=== PATIENT | female | born 1995 | race African-American/Black ===

== ENCOUNTER 2019-06-19 19:21 | Inpatient (IN) | payer MEDICAID ==
[~2019-06-19] VITALS: Ht 177.8 cm; Wt 54.0 kg
[2019-06-19 19:21] VITALS: BP 125/73
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
--- NOTE | 2019-06-19 19:21 | NUR ---
PT AMBULATED FROM [place] TO BED 5. SITTER AT BEDSIDE. ROOM PREPARED FOR 5150 HOLD PRIOR TO PT ARRIVAL.
--- NOTE | 2019-06-19 19:22 | NUR ---
PT DENIES SUICIDAL IDEATION AT THIS TIME. BUT ADDS THAT SHE HAS BEEN PLACED ON A 5150 HOLD BEFORE.
--- NOTE | 2019-06-19 19:30 | NUR ---
PT IN GOWN, PROVIDED URINE. COOPERATIVE AT THIS TIME AND SITTING QUITELY. VSS CONTINUE TO MONITOR.
--- NOTE | 2019-06-19 20:00 | NUR ---
PT EATING BEDSIDE, COOPERATIVE AND QUIET AT THIS TIME.
--- NOTE | 2019-06-19 20:09 | NUR ---
PER TELEPSYCH REQUEST INITIATED
--- NOTE | 2019-06-19 20:09 | NUR ---
LAB AT BEDSIDE
--- NOTE | 2019-06-19 20:23 | NUR ---
PT EXPOSED HER VAGINAL AREA. AREA HAS OPEN SORES, RED AND INFLAMMED. DR HDEZ NOTIFIED.
[2019-06-19 20:28] LABS: BASOPHILS % (AUTO) 0.5 % (0.0-2.0); EOSINOPHILS # (AUTO) 0.1 K/uL (0-0.4); EOSINOPHILS % (AUTO) 1.7 % (0.0-4.0); HEMATOCRIT 33.7 % (36-48); HEMOGLOBIN 11.2 g/dL (12.0-16.0); LYMPHOCYTES # (AUTO) 1.5 K/uL (2.5-16.5); MEAN CORPUSCULAR HEMOGLOBIN 26 pg (27-31); MEAN CORPUSCULAR HGB CONC 33 g/dL (33-37); MEAN CORPUSCULAR VOLUME 78.8 fL (80-94); MONOCYTES # (AUTO) 0.9 K/uL (0.8-1.0); MONOCYTES % (AUTO) 11.6 % (1.7-9.3); NEUTROPHILS # (AUTO) 5.2 K/uL (1.8-7.7); NEUTROPHILS % (AUTO) 67.2 % (42.2-75.2); PLATELET COUNT (AUTO) 332 K/uL (140-450); RED BLOOD CELL COUNT(AUTO) 4.28 MIL/uL (4.20-5.40); RED CELL DISTRIBUTION WIDTH 17.2 % (11.6-13.7); WHITE BLOOD COUNT (AUTO) 7.7 K/uL (4.8-10.8)
[2019-06-19 20:28] LABS: APPEARANCE,URINE CLEAR (CLEAR); BILIRUBIN,URINE 1+ (NEGATIVE); BLOOD, URINE TRACE-I (NEGATIVE); COLOR,URINE YELLOW (YELLOW); LEUKOCYTE ESTERASE ,URINE 1+ (NEGATIVE); NITRITE, URINE NEGATIVE (NEGATIVE); UGLUCOSE NEGATIVE (NEGATIVE)
--- NOTE | 2019-06-19 20:29 | NUR ---
PT ALERT, AWAKE AND ORIENTED. AWARE OF CURRENT SURROUNDINGS. CAN STATE THE YEAR, HER NAME, DATE OF . MEMORY IS INTACT.
[2019-06-19 20:34] LABS: BARBITURATE, URINE NEG. ng/ml (NEG <=200); BENZODIAZEPINE, URINE NEG. ng/mL (NEG <=200); CANNABINOID, URINE NEG. ng/mL (NEG <=50); COCAINE, URINE NEG. ng/mL (NEG <=300); OPIATE, URINE NEG. ng/mL (NEG <=2000); PHENCYCLIDINE SCREEN,URINE NEG. ng/mL (NEG <=25)
[2019-06-19 20:40] LABS: URINE AMORPHOUS URATE 1+ /HPF (None Seen)
[2019-06-19 20:41] LABS: ANION GAP 13.7 (8-16); CARBON DIOXIDE 25.6 mmol/L (21-32); CHLORIDE 104 mmol/L (98-107); CREATININE 1.2 mg/dL (0.6-1.3); GFR ARICAN-AMERICAN 72 mL/min (>90); GLUCOSE 87 mg/dL (74-106); POTASSIUM 3.3 mmol/L (3.5-5.1); SODIUM SERUM 140 mmol/L (136-145); UREA NITROGEN, BLOOD 9 mg/dL (7-18)
[2019-06-19 20:47] LABS: ALBUMIN 2.9 g/dL (3.4-5.0); ASPARTATE AMINOTRANSFERASE 53 U/L (15-37); TOTAL BILIRUBIN 0.4 mg/dL (0.0-1.0)
[2019-06-19 20:50] LABS: ACETAMINOPHEN < 0.5 ug/ml (10-30); SALICYLATE < 2.8 mg/dL (2.8-20.0)
--- NOTE | 2019-06-19 20:51 | NUR ---
PATIENT STATES SHE DOES NOT TAKE ANY MEDICATIONS
[2019-06-19] MEDS ORDERED: CIPROFLOXACIN 250 MG TAB PO ONE (21:05)
--- NOTE | 2019-06-19 21:15 | NUR ---
REPORT GIVEN TO MAXIMILIANO RAMIREZ
--- NOTE | 2019-06-19 21:18 | NUR ---
RECEIVED REPORT FROM SOFIA RAMIREZ
--- NOTE | 2019-06-19 21:31 | NUR ---
GAVE REPORT TO TELE KATJA KEEN. PT ON PHONE WITH KATYA DEVINE MD
--- NOTE | 2019-06-19 21:45 | NUR ---
DR SHEPPARD RECOMMONDS RELEASE OF 5150 AND FOR PT TO SLEEP FOR THE NIGHT AND TO BE D/C IN AM. WILL FAX OVER REPORT. DR HDEZ MADE AWARE.
[2019-06-19] MEDS ORDERED: ACYCLOVIR 500 MG in NACL 0.9% 100 ML IV ONE (22:05)
[2019-06-19] MEDS ORDERED: NACL 0.9% 1,000 ML IV ONE (22:05)
[2019-06-19] MEDS ORDERED: KETOROLAC 30 MG/ML VIAL IVP ONE (22:15)
[2019-06-19] MEDS ORDERED: ACYCLOVIR 500 MG VIAL IV ONE (22:23)
[2019-06-19] MEDS: NACL 0.9% 1,000 ML IV SCH (22:26)
[2019-06-19] MEDS ORDERED: DOCUSATE SODIUM 100 MG GELCAP PO PRN (22:30)
[2019-06-19] MEDS ORDERED: ACETAMINOPHEN 325 MG TAB PO PRN (22:30)
[2019-06-19] MEDS ORDERED: HYDROcodone/APAP 7.5/325 MG 1 TAB PO PRN (22:30)
[2019-06-19] MEDS ORDERED: ONDANSETRON 4 MG/2 ML VIAL IM/IVP PRN (22:30)
--- NOTE | 2019-06-19 22:33 | NUR ---
PT REFUSED XRAY. WAS NOTIFIED
[2019-06-19] MEDS ORDERED: ACYCLOVIR IV PER PHARMACY MC PRN (22:50)
--- NOTE | 2019-06-19 22:52 | NUR ---
RECIEVED PT FROM ER/GURNEY , SLEEPY /DROWSY , BUT OBEY SIMPLE COMMAND , TRANSFER TO BED BY HERSELF WITH SAFETY MEASURES INITIATES BY NURSES , IV SITE INTACT AND PATENT , WITH VESICLES ON GENITALS AND OPEN WOUND ON DIFFERENT STAGES ON GENITAL BUT PT REFUSE FOR PHOTO . PLAN OF CARE DISCUSSED AND POOR UNRSTANDING BUT POOR UNDERSTANDING BEC. OF MENTAL STATUS . ON SAFETY / FALL PRECAUTION PROTOCOL -CALL LIGHT WITHIN REACH. WILL CONT. TO MONITOR.
[2019-06-19 22:54] VITALS: BP 110/72
--- NOTE | 2019-06-19 23:06 | NUR ---
Pt report given to MANDY RAMIREZ. Transfer of care at this time. PT TO MED SURG ROOM 115.
[2019-06-19] MEDS ORDERED: KETOROLAC 30 MG/ML VIAL IM PRN (23:15)
[2019-06-19 23:29] LABS: CHOL/HDL RATIO 3.3 (1-4.5); MAGNESIUM 1.4 mg/dL (1.8-2.4); PHOSPHORUS 3.5 mg/dL (2.5-4.9); THYROID STIMULATING HORMONE 0.83 uIU/mL (0.34-3.74)
[2019-06-19] MEDS ORDERED: QUEtiapine FUMARATE 25 MG TAB PO SCH (23:30)
[2019-06-19] MEDS ORDERED: POTASSIUM CHLORIDE 10 MEQ TABER PO SCH (23:30)
--- NOTE | 2019-06-19 23:55 | NUR ---
PATIENT REFUSED EKG. DR MENDOZA IS AWARE
[2019-06-20] MEDS ORDERED: MAG SULF 2000 MG/WATER PREMIX 50 ML IV SCH
--- NOTE | 2019-06-20 02:00 | NUR ---
SLEEPING - NO DISTRESS NOTED AT THOIS TIME.
[2019-06-20 04:00] VITALS: BP 110/60
--- NOTE | 2019-06-20 04:00 | NUR ---
MADE ROUNDS , NO DISTRESS NOTED ON THIS TIME , CALL LIGHT WITHIN REACH.
[2019-06-20] MEDS ORDERED: ACYCLOVIR 500 MG VIAL IV ONE (06:28)
[2019-06-20] MEDS: ACYCLOVIR 500 MG in NACL 0.9% 100 ML IV SCH ×3 (06:28→23:04)
--- NOTE | 2019-06-20 07:25 | NUR ---
RECEIVED REPORT FROM SASH INSTALLER NURSE JOHN FOR CONTINUITY OF CARE. PT IN STABLE CONDITION. RESPIRATIONS EVEN AND UNLABORED, ROOM AIR. IV INTACT AND PATENT. SAFETY MEASURES IN PLACE. BED IN LOW POSITION. CALL LIGHT AT BEDSIDE. WILL CONTINUE TO MONITOR.
[2019-06-20 07:42] LABS: MAGNESIUM 1.7 mg/dL (1.8-2.4); PHOSPHORUS 4.1 mg/dL (2.5-4.9)
[2019-06-20 07:53] LABS: CARBON DIOXIDE 27.7 mmol/L (21-32); CREATININE 1.1 mg/dL (0.6-1.3); POTASSIUM 3.7 mmol/L (3.5-5.1)
[2019-06-20 08:00] VITALS: BP 113/53
--- NOTE | 2019-06-20 08:00 | NUR ---
PT REFUSED WOUND CARE ASSESSMENT AT THIS TIME.
[2019-06-20 08:16] LABS: BASOPHILS % (AUTO) 0.5 % (0.0-2.0); EOSINOPHILS # (AUTO) 0.2 K/uL (0-0.4); EOSINOPHILS % (AUTO) 3.3 % (0.0-4.0); HEMATOCRIT 37.1 % (36-48); HEMOGLOBIN 11.9 g/dL (12.0-16.0); LYMPHOCYTES # (AUTO) 1.2 K/uL (2.5-16.5); LYMPHOCYTES % (AUTO) 20.3 % (20.5-51.1); MEAN CORPUSCULAR HEMOGLOBIN 26 pg (27-31); MEAN CORPUSCULAR HGB CONC 32 g/dL (33-37); MEAN CORPUSCULAR VOLUME 80.9 fL (80-94); MONOCYTES # (AUTO) 0.7 K/uL (0.8-1.0); MONOCYTES % (AUTO) 11.1 % (1.7-9.3); NEUTROPHILS # (AUTO) 3.9 K/uL (1.8-7.7); NEUTROPHILS % (AUTO) 64.8 % (42.2-75.2); PLATELET COUNT (AUTO) 354 K/uL (140-450); RED BLOOD CELL COUNT(AUTO) 4.58 MIL/uL (4.20-5.40); WHITE BLOOD COUNT (AUTO) 6.1 K/uL (4.8-10.8)
--- NOTE | 2019-06-20 08:30 | NUR ---
PATIENT HAS BEEN SCREENED AND CATEGORIZED HIGH NUTRITION RISK. PATIENT WILL BE SEEN WITHIN 1-2 DAYS OF ADMISSION. 06/20/19-06/21/[address]
[2019-06-20] MEDS: LACTOBACILLUS RHAMNOSUS GG 1 EACH CAP PO SCH (08:55)
--- NOTE | 2019-06-20 10:33 | NUR ---
STANDBY ASSISTED PT TO RESTROOM. PT TOLERATED WELL, STEADY GAIT.
--- NOTE | 2019-06-20 12:01 | NUR ---
GAVE SANDWICH PER PT REQUEST. RESPIRATIONS EVEN AND UNLABORED. BED IN LOW POSITION. CALL LIGHT AT BEDSIDE. PT IN STABLE CONDITION.
--- NOTE | 2019-06-20 12:44 | NUR ---
MADE A FOLLOW UP CALL TO DR. GUNN REGARDING THE PSYCH CONSULT. DR. GUNN STATED HE WILL BE HERE VERY SOON. JAROCHO RAMIREZ ASSIGNED MADE AWARE.
[2019-06-20] MEDS: MORPHINE SULFATE 2 MG/ML SYR IVP PRN (14:21)
--- NOTE | 2019-06-20 14:30 | NUR ---
GAVE PRN MORPHINE FOR PAIN 06/20. PT TOLERATED WELL. WILL CONTINUE TO MONITOR.
[2019-06-20] MEDS: NACL 0.9% 1,000 ML IV SCH ×2 (15:06→23:04)
--- NOTE | 2019-06-20 15:18 | NUR ---
06/20/19 RD INITIAL ASSESSMENT COMPLETED PLEASE REFER TO NUTRITION ASSESSMENT UNDER CARE ACTIVITY FOR ESTIMATED NUTRITIONAL NEEDS. 1. CONTINUE REGULAR DIET TOLERATED 2. RECOMMEND MULTIVITAMIN ONCE DAILY 3. DOUBLE ENTREE WILL BE PROVIDED TO PATIENT 4. HEALTH SHAKES BID WILL BE ADDED TO EACH MEAL 5. IF PO INTAKE FALLS BELOW 75% RECOMMEND ENSURE BID 6. RD TO FOLLOW-UP 3-5 DAYS, MODERATE RISK KUSUM TOVAR RD
--- NOTE | 2019-06-20 15:20 | NUR ---
PT VOMITED ON FLOOR AT THIS TIME. PT IN STABLE CONDITION.
--- NOTE | 2019-06-20 17:22 | NUR ---
GAVE ORANGE JUICE PER PT REQUEST. RESPIRATIONS EVEN AND UNLABORED. BED IN LOW POSITION. CALL LIGHT AT BEDSIDE. PT IN STABLE CONDITION.
[2019-06-20] MEDS: FERROUS SULFATE 325 MG TABEC PO SCH (18:15)
[2019-06-20] MEDS: QUEtiapine FUMARATE 25 MG TAB PO SCH (18:16)
--- NOTE | 2019-06-20 19:36 | NUR ---
GAVE REPORT TO GEOLOGY ASSOCIATE NURSE YEIMI FOR CONTINUITY OF CARE. PT IN STABLE CONDITION.
--- NOTE | 2019-06-20 19:37 | NUR ---
RECEIVED REPORT FROM DAY RN FOR CONTINUITY OF CARE. PT IN STABLE CONDITION. RESPIRATIONS EVEN AND UNLABORED, ROOM AIR. IV INTACT AND PATENT. SAFETY MEASURES IN PLACE. BED IN LOW POSITION. CALL LIGHT AT BEDSIDE. WILL CONTINUE TO MONITOR.
--- NOTE | 2019-06-20 21:30 | NUR ---
DR ROSA IN TO SEE PT WITH DR MENDOZA. DOCTORS ASSESSED THE LESIONS. WILL AWAIT NEW ORDERS. NO S/S OF DISTRESS. WILL CONTINUE TO MONITOR.
[2019-06-20 22:04] VITALS: BP 112/79
--- NOTE | 2019-06-20 23:10 | NUR ---
PT IS SLEEPING COMFORTABLY IN BED. IV ANTIBIOTIC NOW INFUSING PER ORDERS. VITAL SIGNS ARE WITHIN NORMAL LIMITS. DENIES ANY PAIN. NO S/S OF DISTRESS. CALL LIGHT IS WITHIN REACH. WILL CONTINUE TO MONITOR.
--- NOTE | 2019-06-21 01:00 | NUR ---
PT IS SLEEPING COMFORTABLY IN BED. CHEST RISE AND FALL. SAFETY MEASURES ARE IN PLACE. CALL LIGHT IS WITHIN REACH. WILL CONTINUE TO MONITOR.
--- NOTE | 2019-06-21 02:36 | NUR ---
PT IS SLEEPING COMFORTABLY IN BED. CHEST RISE AND FALL. CALL LIGHT IS WITHIN REACH. WILL CONTINUE TO MONITOR.
--- NOTE | 2019-06-21 04:30 | NUR ---
PT IS SLEEPING COMFORTABLY IN BED. CHEST RISE AND FALL. CALL LIGHT IS WITHIN REACH. WILL CONTINUE TO MONITOR.
[2019-06-21 06:07] LABS: HEPATITIS A ANTIBODY IGM Negative (Negative); HEPATITIS B CORE AB TOTAL Negative (Negative); HEPATITIS B SURFACE ANTIBODY Reactive (.); HEPATITIS B SURFACE ANTIGEN Negative (Negative)
[2019-06-21] MEDS: ACYCLOVIR 500 MG in NACL 0.9% 100 ML IV SCH ×3 (06:08→23:31)
--- NOTE | 2019-06-21 06:08 | NUR ---
ZOVIRAX NOW INFUSING PER ORDERS. PT AMBULATED TO BATHROOM WITH ASSIST. LINEN CHANGED. PT DENIES PAIN. ALL NEEDS MET AT THIS TIME. WILL CONTINUE TO MONITOR.
--- NOTE | 2019-06-21 07:23 | NUR ---
GAVE BEDSIDE REPORT TO DAY RN. PT ENDORSED IN STABLE CONDITION.
--- NOTE | 2019-06-21 07:24 | NUR ---
RECEIVED REPORT FROM QUALITY CONTROL ENGINEER NURSE YEIMI FOR CONTINUITY OF CARE. PT IN STABLE CONDITION. RESPIRATIONS EVEN AND UNLABORED, ROOM AIR. IV INTACT AND PATENT. SAFETY MEASURES IN PLACE. BED IN LOW POSITION. CALL LIGHT AT BEDSIDE. WILL CONTINUE TO MONITOR.
[2019-06-21 08:00] VITALS: BP 119/69
[2019-06-21 08:03] LABS: BASOPHILS % (AUTO) 0.4 % (0.0-2.0); EOSINOPHILS # (AUTO) 0.2 K/uL (0-0.4); EOSINOPHILS % (AUTO) 3.8 % (0.0-4.0); HEMATOCRIT 34.5 % (36-48); HEMOGLOBIN 11.3 g/dL (12.0-16.0); LYMPHOCYTES % (AUTO) 17.4 % (20.5-51.1); MEAN CORPUSCULAR HEMOGLOBIN 26 pg (27-31); MEAN CORPUSCULAR HGB CONC 33 g/dL (33-37); MEAN CORPUSCULAR VOLUME 81.1 fL (80-94); MONOCYTES # (AUTO) 0.5 K/uL (0.8-1.0); MONOCYTES % (AUTO) 8.3 % (1.7-9.3); NEUTROPHILS # (AUTO) 4.2 K/uL (1.8-7.7); NEUTROPHILS % (AUTO) 70.1 % (42.2-75.2); PLATELET COUNT (AUTO) 313 K/uL (140-450); RED BLOOD CELL COUNT(AUTO) 4.26 MIL/uL (4.20-5.40); RED CELL DISTRIBUTION WIDTH 16.8 % (11.6-13.7); WHITE BLOOD COUNT (AUTO) 5.9 K/uL (4.8-10.8)
[2019-06-21 09:06] LABS: T4 (THYROXINE) 11.1 ug/dL (4.5-12.0)
[2019-06-21] MEDS: FERROUS SULFATE 325 MG TABEC PO SCH ×2 (09:10→17:56)
--- NOTE | 2019-06-21 09:10 | NUR ---
GAVE ORDERED DUE MEDICATIONS AT THIS TIME. PT TOLERATED WELL. RESPIRATIONS EVEN AND UNLABORED. BED IN LOW POSITION. CALL LIGHT AT BEDSIDE. WILL CONTINUE TO MONITOR.
[2019-06-21] MEDS: LACTOBACILLUS RHAMNOSUS GG 1 EACH CAP PO SCH (09:12)
[2019-06-21 10:10] LABS: POTASSIUM 4.2 mmol/L (3.5-5.1)
[2019-06-21 10:12] LABS: ANION GAP 10.8 (8-16); CARBON DIOXIDE 27.4 mmol/L (21-32)
[2019-06-21 10:15] LABS: CREATININE 0.9 mg/dL (0.6-1.3)
--- NOTE | 2019-06-21 11:35 | NUR ---
DR. DIAZ AT BEDSIDE AT THIS TIME. PT IN STABLE CONDITION. RESPIRATIONS EVEN AND UNLABORED. BED IN LOW POSITION. CALL LIGHT AT BEDSIDE. WILL CONTINUE TO MONITOR.
--- NOTE | 2019-06-21 11:45 | NUR ---
MET WITH THE PATIENT AT THE BEDSIDE, PATIENT IS A LITTLE DROWSY BUT ABLE TO ANSWER QUESTIONS. PROVIDED HER WITH A HOMELESS RESOURCES, ABLE TO VERBALIZE UNDERSTANDING.
[2019-06-21 11:51] LABS: MAGNESIUM 1.2 mg/dL (1.8-2.4); PHOSPHORUS 3.2 mg/dL (2.5-4.9)
[2019-06-21] MEDS: MORPHINE SULFATE 2 MG/ML SYR IVP PRN (11:57)
--- NOTE | 2019-06-21 12:04 | NUR ---
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 REFUSED MEASUREMENT AND PHOTO TAKEN WOUND ASSESSMENT DONE TO GENITAL LABIALS AREAS WITH MULTIPLE SUPERFICIAL SKIN LOSS LESIONS WITH LARGEST TO LABIA MAJORA, WOUND BEDS ARE MOIST AND RED, SMALL AMOUNT OF SEROUS DISCHARGE, MILD ODOR, SOFY WOUND INTACT. WOUND CARE AND TEACHING DONE PT. VERBALIZES UNDERSTANDING, PT IS NOT TOTALLY AWAKE AND ALERT AT THIS TIME. POC DISCUSSED WITH PRIMARY RN.CONTINUE WOUND CARE TEACHING RECOMMENDATIONS: -RINSE AREA WITH NS. PAT DRY APPLY ANTIVIRAL CREAM AND COVER WITH DRY DRESSING QD AND PRN IF SOILING -MAY APPLY COOL COMPRESSES PER PROTOCOL IF C/O ITCHINESS/PAIN -CONTINUE WOUND CARE TEACHING
[2019-06-21] MEDS: MAG SULF 2000 MG/WATER PREMIX 100 ML IV SCH ×2 (13:10→15:32)
--- NOTE | 2019-06-21 13:33 | NUR ---
PT LYING IN BED SLEEPING AT THIS TIME. RESPIRATIONS EVEN AND UNLABORED. BED IN LOW POSITION. CALL LIGHT AT BEDSIDE. WILL CONTINUE TO MONITOR.
[2019-06-21 15:06] LABS: FERRITIN 51 ng/mL (15-150); FOLIC ACID > 20.00 ng/mL (>3.0)
--- NOTE | 2019-06-21 15:45 | NUR ---
GAVE TURKEY SANDWICH FROM [facility]NS PER PT REQUEST. PT TOLERATED WELL. RESPIRATIONS EVEN AND UNLABORED. BED IN LOW POSITION. CALL LIGHT AT BEDSIDE. WILL CONTINUE TO MONITOR.
[2019-06-21 16:00] VITALS: BP 114/64
--- NOTE | 2019-06-21 17:55 | NUR ---
PT LYING IN BED SLEEPING AT THIS TIME. RESPIRATIONS EVEN AND UNLABORED. WILL CONTINUE TO MONITOR.
[2019-06-21] MEDS: QUEtiapine FUMARATE 25 MG TAB PO SCH (17:57)
--- NOTE | 2019-06-21 19:25 | NUR ---
GAVE REPORT TO SUPERVISOR LIME NURSE FOR CONTINUITY OF CARE. PT IN STABLE CONDITION.
--- NOTE | 2019-06-21 19:26 | NUR ---
RECEIVED REPORT FROM DAY RN FOR CONTINUITY OF CARE. PT IS AAOX4. RESPIRATIONS EVEN AND UNLABORED, ROOM AIR. IV INTACT AND PATENT IVF INFUSING PER ORDERS. SAFETY MEASURES IN PLACE. PT REFUSED TO ASSESS GENITAL AREA. PT ON CONTACT ISOLATION. POC DISCUSSED. BED IN LOW POSITION. CALL LIGHT AT BEDSIDE. WILL CONTINUE TO MONITOR.
--- NOTE | 2019-06-21 20:30 | NUR ---
GAVE PT MARV CRACKERS AND MILK PER REQUEST. ALL NEEDS MET AT THIS TIME. WILL CONTINUE TO MONITOR.
--- NOTE | 2019-06-21 21:35 | NUR ---
PT IS SLEEPING COMFORTABLY IN BED. CHEST RISE AND FALL. NO S/S OF DISTRESS. CALL LIGHT IS WITHIN REACH. WILL CONTINUE TO MONITOR.
[2019-06-21] MEDS: NACL 0.9% 1,000 ML IV SCH (23:31)
--- NOTE | 2019-06-21 23:31 | NUR ---
IV ANTIBIOTIC NOW INFUSING PER ORDERS. VITAL SIGNS ARE WITHIN NORMAL LIMITS. ALL NEEDS MET AT THIS TIME. CALL LIGHT IS WITHIN REACH. WILL CONTINUE TO MONITOR.
[2019-06-21 23:45] VITALS: BP 121/63
--- NOTE | 2019-06-22 01:17 | NUR ---
PATIENT IS RESTING COMFORTABLY IN BED WITH EYES CLOSED. CHEST RISE AND FALL. CALL LIGHT IS WITHIN REACH. WILL CONTINUE TO MONITOR.
--- NOTE | 2019-06-22 03:30 | NUR ---
PT IS SLEEPING COMFORTABLY IN BED. CHEST RISE AND FALL. NO S/S OF DISTRESS. CALL LIGHT IS WITHIN REACH. WILL CONTINUE TO MONITOR.
--- NOTE | 2019-06-22 05:00 | NUR ---
BED WAS WET. PT INCONTINENT X1 AND IV WAS ACCIDENTLY PULLED OUT. IV CATH IS INTACT. PT SHOWERING PER REQUEST. PT WITH STEADY GAIT. WILL ATTEMPT TO INSERT NEW IV WHEN PT IS DONE SHOWERING. BED WAS CLEANED WITH FRESH LINEN. ALL NEEDS MET AT THIS TIME. WILL CONTINUE TO MONITOR.
--- NOTE | 2019-06-22 05:30 | NUR ---
PATIENT IS BACK IN BED. INSERTED NEW IV ON LEFT AC 22G ON FIRST ATTEMPT. PT TOLERATED WELL. ALL NEEDS MET AT THIS TIME. CALL LIGHT IS WITHIN REACH. WILL CONTINUE TO MONITOR.
[2019-06-22] MEDS: ACYCLOVIR 500 MG in NACL 0.9% 100 ML IV SCH (06:02)
--- NOTE | 2019-06-22 07:19 | NUR ---
GAVE BEDSIDE REPORT TO DAY RN. PT ENDORSED IN STABLE CONDITION.
--- NOTE | 2019-06-22 07:30 | NUR ---
RECEIVED REPORT FROM ENGINEERING DEPARTMENT CHAIR NURSE. PATIENT IS SLEEPING IN BED, VISIBLE CHEST RISE AND FALL. A&O X4. LBM 06/22. IV TO RIGHT AC 22G WITH NS INFUSING AT 60ML/HR
[2019-06-22 07:33] LABS: ANION GAP 10.2 (8-16); CREATININE 0.8 mg/dL (0.6-1.3); POTASSIUM 4.2 mmol/L (3.5-5.1)
[2019-06-22 07:36] LABS: BASOPHILS % (AUTO) 0.7 % (0.0-2.0); EOSINOPHILS # (AUTO) 0.2 K/uL (0-0.4); EOSINOPHILS % (AUTO) 3.8 % (0.0-4.0); HEMATOCRIT 36.4 % (36-48); HEMOGLOBIN 11.9 g/dL (12.0-16.0); LYMPHOCYTES # (AUTO) 0.8 K/uL (2.5-16.5); LYMPHOCYTES % (AUTO) 18.2 % (20.5-51.1); MEAN CORPUSCULAR HEMOGLOBIN 26 pg (27-31); MEAN CORPUSCULAR HGB CONC 33 g/dL (33-37); MEAN CORPUSCULAR VOLUME 80.4 fL (80-94); MONOCYTES # (AUTO) 0.4 K/uL (0.8-1.0); MONOCYTES % (AUTO) 8.2 % (1.7-9.3); NEUTROPHILS # (AUTO) 3.1 K/uL (1.8-7.7); NEUTROPHILS % (AUTO) 69.1 % (42.2-75.2); PLATELET COUNT (AUTO) 328 K/uL (140-450); RED BLOOD CELL COUNT(AUTO) 4.53 MIL/uL (4.20-5.40); RED CELL DISTRIBUTION WIDTH 16.7 % (11.6-13.7); WHITE BLOOD COUNT (AUTO) 4.5 K/uL (4.8-10.8)
[2019-06-22 07:42] LABS: MAGNESIUM 1.7 mg/dL (1.8-2.4); PHOSPHORUS 3.6 mg/dL (2.5-4.9)
[2019-06-22 08:00] VITALS: BP 109/65
[2019-06-22] MEDS ORDERED: ACYC400T PO (09:04)
[2019-06-22] MEDS ORDERED: QUET25TA46 PO (09:04)
[2019-06-22] MEDS ORDERED: CIPR500T4 PO (09:04)
[2019-06-22] MEDS ORDERED: FER325 PO (09:04)
[2019-06-22] MEDS: LACTOBACILLUS RHAMNOSUS GG 1 EACH CAP PO SCH (09:05)
[2019-06-22] MEDS: FERROUS SULFATE 325 MG TABEC PO SCH (09:06)
[2019-06-22] MEDS ORDERED: MAGNESIUM OXIDE 400 MG TAB PO SCH (09:10)
--- NOTE | 2019-06-22 10:10 | NUR ---
PATIENT HAS BEEN DISCHARGED TO [facility]. IV LINE WAS REMOVED, CANNULA INTACT. WRISTBAND WAS REMOVED. PATIENT WAS GIVEN RESOURCE PACKET ALONG WITH HOMELESS MEAL. PAPERWORK SIGNED AND DISCHARGE PRESCRIPTIONS GIVEN.
[2019-06-23 04:18] LABS: TRANSFERRIN 197 mg/dL (200-370)
[2019-06-25 09:44] LABS: CHLAMYDIA TRACHOMATIS AMP DNA POSITIVE (NEGATIVE)
== END 2019-06-22 10:10 | disposition home or self-care (01) | DRG 812 ==
LOC: MED 19:21 → MTU 22:26
PROVIDERS: ADMIT General Practice; ATTEND General Practice
DX: T43.621A Poisoning by amphetamines, accidental (unintentional), initial encounter (principal); E43 Unspecified severe protein-calorie malnutrition; G92 Toxic encephalopathy; F20.0 Paranoid schizophrenia; E83.42 Hypomagnesemia; A60.00 Herpesviral infection of urogenital system, unspecified; E87.6 Hypokalemia; Z60.2 Problems related to living alone; D64.9 Anemia, unspecified; Y92.89 Other specified places as the place of occurrence of the external cause; Z68.1 Body mass index [BMI] 19.9 or less, adult; F15.10 Other stimulant abuse, uncomplicated
CPT/HCPCS: 36415; 80048; 80053; 80305; 81001; 82150; 82607; 82728; 82746; 82977; 83036; 83540; 83605; 83690; 83735; 83880; 84100; 84436; 84443; 84484; 85025; 85045; 85610; 85730; 86592; 86702; 86704; 86706; 86708; 86709; 86803; 87040; 87081; 87086; 87340; 87491; 87529; 96365; 99285; G0480; G0482; J0133; J0696; J1885; J2270; J3475; J7030; J7060